=== PATIENT | female | born 1940 | race Caucasian/White ===

== ENCOUNTER 2025-02-12 09:36 | Outpatient (AMB) | payer MEDICARE, SELFPAY ==
--- NOTE | 2025-02-12 09:44 | MHC.OFFVIS ---
Vital Signs 02/12/25 09:45 Height 5 ft 1 in Weight 132 lb BMI 24.9 Blood Pressure Location Lt brachial Position Sitting Pulse 63 Pulse Oximetry (%) 96 Intake Visit Reasons: follow up Finishing Range Feeder Required: No Allergies No Known Allergies Allergy (Verified 02/12/25 09:48) Medication List - Last Reconciled 02/12/25 by Diana Rubin CNP amlodipine 7.5 mg PO DAILY cholecalciferol (vitamin D3) 25 mcg PO DAILY fluticasone propion-salmeterol 250-50 mcg/dose (Wixela Inhub) inhalation gabapentin 300 mg PO BID levothyroxine 50 mcg PO DAILY lisinopril 40 mg PO DAILY omeprazole 40 mg PO DAILY HPI Comments Details: She was doing okay. Neuropathy stable, minimal to no pain. No burning. Occasional tingling, usually in winter when cold. Minor cramps in legs. Sleep was okay. No falls. Staying active and exercising, line dancing and going for walks. Had L Childers's cysts. Previously fell x3 in 01/2020 and fractured L elbow. Had negative cardiac work up. Hx of peripheral neuropathy dating back to 1997. Had negative workup. Nerve conduction study in 07/2010 showed sensory greater than motor axonal peripheral neuropathy in lower extremities. REPLACED BY [facility] Medical History (Updated 02/12/25 @ 10:19 by Diana Rubin CNP) Hypothyroidism GERD (gastroesophageal reflux disease) Asthma Hypertension Hereditary and idiopathic peripheral neuropathy Peripheral neuropathy Review of Systems Const Denies chills, Denies daytime sleepiness, Denies difficulty sleeping, Denies fatigue, Denies fever(s), Denies frequent falls, Denies headache(s), Denies increased appetite, Denies poor appetite, Denies snoring, Denies weakness, Denies weight gain and Denies weight loss Eyes Denies loss of vision ENT Denies vertigo, Denies dizziness, Denies headache(s) and Denies neck pain Card Denies chest pain at rest, Denies chest pain with activity, Denies syncope, Denies leg edema, Denies palpitations, Denies dyspnea and Denies dyspnea on exertion Resp Denies cough, Denies dyspnea, Denies dyspnea on exertion and Denies snoring GI Denies abdominal pain, Denies constipation, Denies heartburn, Denies diarrhea and Denies nausea Denies urinary frequency, Denies urinary incontinence and Denies urinary urgency Musc Denies abnormal gait, Denies back pain, Denies myalgias, Denies arthralgias, Denies neck pain, Reports numbness and Reports tingling Neuro Denies abnormal gait, Denies vertigo, Denies dizziness, Denies syncope, Denies frequent falls, Denies headache(s), Denies lack of coordination, Denies loss of vision, Denies memory loss, Reports numbness, Denies Other visual disturbances, Denies restless legs, Denies seizure-like activity, Reports tingling, Denies paresthesias, Denies tremor(s) and Denies weakness Psych Denies anxiety, Denies depression, Denies auditory hallucinations, Denies memory loss and Denies visual hallucinations Endo Denies fatigue and Denies palpitations Physical Exam Vital Signs: Last Vital Signs Pulse 63 02/12/25 09:45 Pulse Ox 96 02/12/25 09:45 BMI result Body Mass Index 24.9 Const Other: General Appearance:? normal, in no acute distress. Heart:? S1, S2 normal, no murmurs. Lungs:? clear anteriorly and posteriorly. Musculoskeletal:? normal. Extremities:? no edema. Psych:? alert, oriented, cognitive function intact, cooperative with exam. Neuro Other: Abnormal Neurological Findings:?vibration loss below mid kingsley level. impaired pin prick below mid tarsal level. Atrophy of foot muscles and 1+ ankle reflexes? Mental Status: alert and oriented X 3. Normal attention, orientation, memory, and affect. Cranial Nerves: Pupils are equal, round, and reactive to light. External ocular muscles are intact. Visual kasper are full, no ptosis. Face is symmetrical, no facial weakness or droop. Facial sensations are normal. Tongue protrudes in midline. Palate elevates symmetrically. Shoulder shrugging is normal Motor Examination: Atrophy and weakness of intrinsic foot muscles. Normal muscle tone, bulk and strength,?No atrophy or fasciculations,?No drift of the extended upper extremities,?Deep tendon reflexes are 2+ , AJ 0-1+,?Plantars are flexor Sensory Exam: As above otherwise Normal light touch, temperature, pinprick, vibration and joint-position sensations?,Rhomberg sign is absent.? Coordination: No ataxia. No titubation. Gait Exam: Within normal limits. Cerebellar Signs: [id number] is okay. Extrapyramidal System: No tremor, rigidity with normal facial expressions. No bradykinesia. No bradyphrenia. Normal arm swing and posture. No propulsion or retropulsion. Speech: Normal. Results Reviewed Results Reviewed: NCV/EMG LE 02/02/15 AXONAL SENSORY AND MOTOR PERIPHERAL NEUROPATHY IN THE LOWER EXTREMITIES. NO SIGNIFICANT CHANGES SINCE LAST NCV/EMG DONE ON 08/03/10. Assessment & Plan Assessment & Plan (1) Hereditary and idiopathic peripheral neuropathy: Code(s): G60.9 - Hereditary and idiopathic neuropathy, unspecified Category: Medical Plan: Continue gabapentin 300mg 1 capsule twice a day. Medications: New gabapentin 300 mg PO BID 180 caps 3RF 90 days Coding Level of Care Code Est Pt Level 4 (57008) Diagnoses Hereditary and idiopathic peripheral neuropathy G60.9
[2025-02-12 09:45] VITALS: PULSE 63; O2SAT 96; BMI 24.9
--- OUTSIDE RECORDS SUMMARY | 2025-02-12 10:21 | XMS_ITS | Encounter Summary ---
Author Organization [facility] Address [id number] [place] [id number] Care Team Providers Care Pension Manager Name Role Phone Antonio Nice DO Primary Care Provider [phone] Encounter Details Date Type Department Care Team (Late Contact Info) Description 07/14/2024 Lab Requisition [facility] - Main Lab [address] [facility] [place] [phone] Cleo Joshua PA [address] [place] [address] Dysuria Social History Tobacco Use Types Packs/Day Years Used Date Smoking Tobacco: Never Smokeless Tobacco: Never Alcohol Use Standard Drinks/Week Comments No 0 (1 standard drink = 0.6 oz pur e alcohol) Comments Unknown Sex and Gender Information Value Date Recorded Sex Assigned at Not on file Legal Sex Female 11:38 AM EST Gender Identity Not on file Sexual Orientation Not on file documented as of this encounter Plan of Treatment Upcoming Encounters Date Type Department Care Team (Late Contact Info) Description 03/16/2025 10:30 AM EDT Office Visit [facility] [address] [facility] [address] [place] [phone] Brent Chand MD [address] [place] [phone] 04/08/2025 10:00 AM EDT Office Visit [facility] [address] [facility] [address] [place] [phone] Brent Chand MD [address] [place] [phone] documented as of this encounter Procedures Procedure Name Priority Date/Time Associated Diagnosis Comments CULTURE URINE Routine 07/14/2024 10:00 AM EST Dysuria documented in this encounter Results * (ABNORMAL) Culture urine (07/14/2024 10:00 AM EST) Culture, Urine 50,000-100,000 CFU/mL Citrobacter braakii(A) JUSTYN 07/16/2024 9:20 AM EST [facility] Comment: This is an edited result. Previous organism was Gram negative bacilli on 07/15/2024 at 1222 EST. Urine Urine specimen obtained by clean catch procedure / Unknown 07/14/2024 10:00 AM EST 07/14/2024 6:26 PM EST Narrative Organism Antibiotic Method Susceptibility Citrobacter braakii Amoxicillin/Clavulanate JUSTYN 16 ug/ml: Resistant Citrobacter braakii Cefoxitin JUSTYN >=64 ug/ml: Resistant Citrobacter braakii Ceftazidime JUSTYN <=0.5 ug/ml: Susceptible Citrobacter braakii Amikacin JUSTYN 2 ug/ml: Susceptible Citrobacter braakii Gentamicin JUSTYN <=1 ug/ml: Susceptible Citrobacter braakii Ciprofloxacin JUSTYN <=0.06 ug/ml: Susceptible Citrobacter braakii Nitrofurantoin JUSTYN <=16 ug/ml: Susceptible Citrobacter braakii Trimethoprim/Sulfamethoxazole JUSTYN <=20 ug/ml: Susceptible us Cleo MITCHELL LAB MICROBIOLOGY - GENERAL ORD ERABLES Final Result [facility] [address] [place] [address], documented in this encounter Visit Diagnoses Diagnosis Dysuria documented in this encounter Care Teams Pension Manager Relationship Specialty Start Date End Date Antonio Nice DO [address] [place] [address] PCP - General 07/17/99 documented as of this encounter
--- OUTSIDE RECORDS SUMMARY | 2025-02-12 10:21 | XMS_ITS | Encounter Summary ---
Author Organization [facility] Address [address] [place] [address] Care Team Providers Care Supervisor Sawmill Name Role Phone Antonio Nice DO Primary Care Provider [phone] Encounter Details Date Type Department Care Team (Late Contact Info) Description 09/10/[address] [facility] - Main Lab [address] [facility] [place] [address] Mauro Carmen PA [address] [place] [address] Urinary tract infection, site not specified; Other chronic cystitis without hematuria Social History Tobacco Use Types Packs/Day Years [...] Description 03/16/2025 10:30 AM EDT Office Visit [facility] 175 [facility] [address] [place] [address] Brent Chand MD [address] [place] [phone] 04/08/2025 10:00 AM EDT Office Visit [facility] [address] [facility] [address] [place] [address] Brent Chand MD [address] [place] [phone] documented as of this encounter Procedures Procedure Name Priority Date/Time Associated Diagnosis Comments CULTURE URINE Routine 09/10/2024 1:30 PM EDT Urinary tract infection, site not specified Other chronic cystitis without hematuria documented in this encounter Results * Culture urine (09/10/2024 1:30 PM EDT) Culture, Urine No growth 09/11/2024 1:53 PM EDT [facility] Urine Urine specimen obtained by clean catch procedure / Unknown 09/10/2024 1:30 PM EDT 09/10/2024 6:26 PM EDT us Mauro Carmen PA LAB MICROBIOLOGY - GENERAL ORD ERABLES Final Result [facility] [address] [place] [address], documented in this encounter Visit Diagnoses Diagnosis Urinary tract infection, site not specified Other chronic cystitis without hematuria documented in this encounter Care Teams Supervisor Sawmill Relationship Specialty Start Date End Date Antonio Nice DO [address] [place], [place] PCP - General 07/17/99 documented as of this encounter
--- OUTSIDE RECORDS SUMMARY | 2025-02-12 10:21 | XMS_ITS | Encounter Summary ---
Author Organization [facility] Address [address] [place] [address] Care Team Providers Care Crop Quantitative Geneticist Name Role Phone Antonoi Nice DO Primary Care Provider [phone] Encounter Details Date Type Department Care Team (Late Contact Info) Description 10/28/[address] [facility] - Main Lab [address] [facility] [place] [phone] El Garrett, PA [address] [place] [address] Urinary tract infection, site not specified Social History Tobacco Use Types Packs/Day Years [...] Description 03/16/2025 10:30 AM EDT Office Visit [facility] 175 [facility] [address] [place] [phone] Brent Chand MD [address] [place] [phone] 04/08/2025 10:00 AM EDT Office Visit [facility] [address] [facility] [address] [place] [address] Brent Chand MD [address] [place] [phone] documented as of this encounter Procedures Procedure Name Priority Date/Time Associated Diagnosis Comments CULTURE URINE Routine 10/28/2024 12:00 AM EDT Urinary tract infection, site not specified documented in this encounter Results * Culture urine (10/28/2024 12:00 AM EDT) Culture, Urine No growth 10/29/2024 10:17 AM EDT [facility] Urine Urine specimen obtained by clean catch procedure / Unknown 10/28/2024 10/28/2024 1:39 PM EDT [facility] Gerry MITCHELL LAB MICROBIOLOGY - GENERAL CRISTELA MANCILLA Final Result [facility] [address] [place] [address], documented in this encounter Visit Diagnoses Diagnosis Urinary tract infection, site not specified documented in this encounter Care Teams Crop Quantitative Geneticist Relationship Specialty Start Date End Date Antonio Nice DO [address] [place] [address] PCP - General 07/17/99 documented as of this encounter
--- OUTSIDE RECORDS SUMMARY | 2025-02-12 10:21 | XMS_ITS | Clinical Summary ---
Author Organization [address] Address [address] [place] [phone] Phone Care Team Providers Care Director Cost Name Role Phone Antonio Nice DO Primary Care Provider [phone] Allergies No known active allergies Medications GABAPENTIN ORAL Gabapentin, Once-Daily, 300 & 600 MG Misc Patient sig: Take by mouth. Active amLODIPine (Norvasc) 5 mg tablet 1 TABLET DAILY Activ e fluticasone-enid meterol (ADVAIR DISKUS) 250-50 mcg/dose diskus inhaler Inhale into the lungs. 2 Active fluticasone-enid meterol (ADVAIR DISKUS) 250-50 mcg/dose diskus inhaler Inhale 1 Puff into the lungs every 12 hours. Active hydroCHLOROthia zide (MICROZIDE) 12.5 mg capsule Take 1 Capsule by mouth daily. 2 Active levothyroxine (SYNTHROID, LEVOTHROID) 50 mcg tablet 1 TABLET DAILY Acti ve lisinopril (PRINIVIL,ZESTR IL) 40 mg tablet Take 1 Tablet by mouth daily. 2 Active famotidine (PEPCID) 40 mg tablet Take 1 tablet (40 mg total) by mouth 2 (two) times a day. 180 each 3 5 07/23/19 26 Active albuterol HFA (PROAIR HFA ; PROVENTIL HFA ; VENTOLIN HFA) 90 mcg/actuation inhaler Inhale 2 puffs by mouth 3 (three) times a day. 9 Active aspirin 81 mg EC tablet Take 1 tablet (81 mg total) by mouth 1 (one) time. 8 Active cephalexin (KEFLEX) 250 mg capsule Take 1 capsule (250 mg total) by mouth 1 (one) time each day in the morning. Active ciprofloxacin (CIPRO) 250 mg tablet Take 1 tablet (250 mg total) by mouth 2 (two) times a day. Active estradioL (ESTRACE) 0.01 % (0.1 mg/gram) vaginal cream Insert 1 g into the vagina 3 (three) times a week. Active fluticasone propionate (FLONASE) 50 mcg/actuation nasal spray Administer 2 sprays into each nostril 1 (one) time each day. 4 Active neomycin-polymy theodore-dexamethame thasone (POLYDEX) 3.5 mg/g-10,000 unit/g-0.1 % ointment Apply to both eyes at bedtime. Active nitrofurantoin, macrocrystal-mo nohydrate, (MACROBID) 100 mg capsule Take 1 capsule (100 mg total) by mouth 2 (two) times a day. Active omeprazole (PriLOSEC) [address] capsule Take 1 capsule (40 mg total) by mouth 1 (one) time each day. Active sulfamethoxazol e-trimethoprim (BACTRIM DS,SEPTRA DS) 800-160 mg per tablet Take 1 tablet by mouth 2 (two) times a day. Active trimethoprim (TRIMPEX) 100 mg tablet Take 1 tablet (100 mg total) by mouth 2 (two) times a day. 9 Active umeclidinium (INCRUSE ELLIPTA) 62.5 mcg/actuation inhalation Inhale 1 puff by mouth 1 (one) time each day. Active Active Problems Problem Noted Date Diagnosed Date Chronic obstructive lung disease ([facility] V24, [facility] [place]/[facility] V28) 12/10/2024 Dyslipidemia 12/10/2024 Gastroesophageal reflux disease 12/10/2024 Overview (12/10/2024): [id number] Gustavo thyroiditis 12/10/2024 Idiopathic peripheral neuropathy 12/10/2024 Osteopenia 12/10/2024 Palpitations 12/10/2024 Prediabetes 12/10/2024 Urticaria 12/10/2024 HTN (hypertension) 05/17/2022 Overview (07/20/2024): Last Assessment & Plan: The patient has a history of arterial hypertension. The patient's blood pressure today was noted to be well controlled. We'll continue the current antihypertensive medication regimen. Acute sinusitis 10/02/2021 Overview (12/10/2024): Other acute sinusitis; Note: Date Diagnosed: 10/02/2021 1:22 PM (J01.80) Bilateral impacted cerumen 05/05/2018 Overview (12/10/2024): Impacted cerumen, bilateral; Note: Date Diagnosed: 05/05/2018 9:41 AM (H61.23) Encounters Date Type Department Care Team Description 01/07/2025 10:45 AM EDT Office Visit [address] [phone] Brent Chand MD COPD with acute exacerbation (CMS/HCC V24, CMS/[facility] V28) (Primary Dx); Gastroesophageal reflux disease without esophagitis; Seasonal allergic rhinitis due to pollen 12/17/2024 10:27 AM EDT - 12/17/2024 11:59 PM EDT Hospital Encounter [facility] Xray [address] [place] [phone] COPD with acute exacerbation (CMS/HCC V24, CMS/HCC V28) Discharge Disposition: Home or Self Care 12/16/2024 2:00 PM EDT Office Visit [address] [phone] Brent Chand MD COPD with acute exacerbation (CMS/HCC V24, CMS/HCC V28) (Primary Dx); Gastroesophageal reflux disease without esophagitis; Non-seasonal allergic rhinitis due to pollen 12/10/2024 11:30 AM EDT Office Visit [address] [phone] Brent Chand MD Pulmonary emphysema, unspecified emphysema type (CMS/HCC V24, CMS/HCC V28) (Primary Dx); Acute cough; Upper respiratory tract infection, unspecified type; Seasonal allergic rhinitis due to pollen; Bronchitis from Last 3 Months Surgical History Surgery Date Site/Laterality Comments BLADDER SUSPENSION 1999 PROCEDURE: HISTORICAL BLADDER SUSPENSION SECTION PROCEDURE: [place] DELIVERY ONLY; COMMENT: x1 TONSILLECTOMY PROCEDURE: HISTORICAL TONSILLECTOMY HYSTERECTOMY PROCEDURE: HISTORICAL HYSTERECTOMY HYSTERECTOMY PROCEDURE: [place] VAGINAL HYSTERECTOMY UTERUS 250 GM/< Medical History Medical History Date Comments Disuse osteoporosis DX:Disuse os teoporosis Essential hypertension, benign D X:Essential hypertension, benign Family History Medical History Relation Name Comments Heart attack Brother 1 Heart attack Brother 2 Heart failure Father Heart failure Maternal Grandmother Asthma Mother Hypertension Sister 1 x4 Relation Name Status Comments Brother 1 Brother 2 Brother 3 Alive x1 Daughter Alive x1 Father (Age 50) Maternal Grandfather Maternal Grandmother Mother (Age 85) Paternal Grandfather Paternal Grandmother Sister 1 Sister 2 Alive x4 Son Alive x2 Social History Tobacco Use Types Packs/Day Years Used Date Smoking Tobacco: Never Smokeless Tobacco: Never Tobacco Cessation:Counseling Given: Not Answered Alcohol Use Standard Drinks/Week Comments No 0 (1 standard drink = 0.6 oz pur e alcohol) Comments Unknown Sex and Gender Information Value Date Recorded Sex Assigned at Not on file Legal Sex Female 11:38 AM EST Gender Identity Not on file Sexual Orientation Not on file Obstetrics History Last Filed Vital Signs Vital Sign Reading Time Taken Comments Blood Pressure 131/70 01/07/2025 10:32 AM EDT Pulse 71 01/07/2025 10:32 AM EDT Temperature 35.9 C (96.6 F) 01/07/2025 10:32 AM EDT Respiratory Rate 20 12/16/2024 2:10 PM EDT Oxygen Saturation 97% 01/07/2025 10: 32 AM EDT Inhaled Oxygen Concentration - - Weight 61.1 kg (134 lb 12.8 oz) 025 10:32 AM EDT Height 154.9 cm (5' 1 ) 12/16/2024 2:10 PM EDT Body Mass Index 25.47 12/16/2024 2:10 PM EDT Plan of Treatment Upcoming Encounters Date Type Department Care Team (Late st Contact Info) Description 03/16/2025 10:30 AM EDT Office Visit [facility]mon[facility]gy [facility] [address] [place] [phone] Brent Chand MD [address] [place] [phone] 04/08/2025 10:00 AM EDT Office Visit [facility] [address] [place] [phone] Brent Chand MD [address] [place] [phone] Health Maintenance Due Date Last Done Comments Zoster Vaccines (2 of 2) 07/07/2018 05/12/2018 Cholesterol Screening (Lipid Panel) 05/20/2022 Falls Risk Assessment 05/20/2022 Medicare Annual Wellness Visit 05/20/2022 Osteoporosis Screening (Bone Density Screening) 05/20/2022 Social Influencers of Health Screening 05/20/2022 Hypertension/CHF/CAD Annual BMP Blood Test 07/12/2023 Depression Screening 06/10/2024 COVID-19 Vaccine ( season) 2025 12/09/2021, 03/03/2021, 07/30/2020, Additional history exists Influenza Vaccine (#1) 2025 , 02/08/2023, 02/21/2022, Additional history exists DTaP,Tdap,and Td Vaccines (3 - Td or Tdap) 12/16/2028 12/16/2018, 12/16/2015 Pneumococcal Vaccine: 50+ Years Completed 03/10/2022 RSV Immunization Adult Patients Completed 04/06/2023 HIB Vaccines Aged Out No longer eligi ble based on patient's age to complete this topic HPV Vaccines Aged Out No longer eligi ble based on patient's age to complete this topic Hepatitis A Vaccines Aged Out No long er eligible based on patient's age to complete this topic Hepatitis B Vaccines Aged Out No long er eligible based on patient's age to complete this topic IPV Vaccines Aged Out No longer eligi ble based on patient's age to complete this topic MMR Vaccines Aged Out No longer eligi ble based on patient's age to complete this topic Meningococcal ACWY Vaccine Aged Out N o longer eligible based on patient's age to complete this topic Meningococcal B Vaccine Aged Out No l onger eligible based on patient's age to complete this topic RSV Immunization Patients Under 20 months Aged Out No longer eligible based on patient's age to complete this topic Varicella Vaccines Aged Out No longer eligible based on patient's age to complete this topic Procedures Procedure Name Priority Date/Time Associated Diagnosis Comments XR CHEST 2 VIEWS Routine 12/17/2024 10:3 5 AM EDT COPD with acute exacerbation ([facility] V24, [facility] V28) from Last 3 Months Results * XR Chest 2 Views (12/17/2024 10:35 AM EDT) Anatomical Region Laterality Modality Body Radiographic Judy ging 12/17/2024 10:4 0 AM EDT Impressions 12/17/2024 10:43 AM EDT Mild linear scarring versus discoid atelectasis at the left lung base. The lungs are otherwise clear. Code 38491 -------- FINAL REPORT -------- Dictated By: Mina Alonso Dictated Date: 12/17/2024 10:40 ET Assigned Physician: Mina Alonso Reviewed and Electronically Signed By: Mina Alonso Signed Date: 12/17/2024 10:43 ET Workstation ID: [id number] Transcribed By: Self Edit Transcribed Date: 12/17/2024 10:40 ET Narrative 12/17/2024 10:43 AM EDT HISTORY: The patient is an 84-year-old female with persistent cough. FINDINGS: PA and lateral radiographs of the chest, without previous for comparison, are obtained. A necklace, which the patient apparently would not remove, partially obscures the included portion of the cervical spine. There are mild degenerative changes of the thoracic spine and there is dextroscoliosis of the included portion of the lumbar spine. The cardiac silhouette is within normal limits. The descending thoracic aorta is tortuous. Mild linear scarring versus discoid atelectasis is present at the left lung base. The lungs are otherwise clear and the costophrenic angles are sharp. Procedure Note Mina Alonso MD - 12/17/2024 HISTORY: The patient is an 84-year-old female with persistent cough. FINDINGS: PA and lateral radiographs of the chest, without previous forcomparison, are obtained. A necklace, which the patient apparently wouldnot remove, partially obscures the included portion of the cervical spine.There are mild degenerative changes of the thoracic spine and there isdextroscoliosis of the included portion of the lumbar spine. The cardiacsilhouette is within normal limits. The descending thoracic aorta istortuous. Mild linear scarring versus discoid atelectasis is present atthe left lung base. The lungs are otherwise clear and the costophrenicangles are sharp. IMPRESSION: Mild linear scarring versus discoid atelectasis at the left lung base. Thelungs are otherwise clear. Code 14729 -------- FINAL REPORT -------- Dictated By: Mina Alonso Dictated Date: 12/17/2024 10:40 ET Assigned Physician: Mina Alonso Reviewed and Electronically Signed By: Mina Alonso Signed Date: 12/17/2024 10:43 ET Workstation ID: [id number] Transcribed By: Self Edit Transcribed Date: 12/17/2024 10:40 ET us Brent Chand MD IMG XR PROCEDURES Final Resu lt from Last 3 Months Insurance MEDICARE [facility] Care Teams Director Cost Relationship Specialty Start Date End Date Antonio Nice DO [address] [place] [address] PCP - General 07/17/99
--- OUTSIDE RECORDS SUMMARY | 2025-02-12 10:21 | XMS_ITS | Encounter Summary ---
Author Organization [facility] Address [address] [place] [address] Care Team Providers Care Pharmacovigilance Safety Expert Name Role Phone Antonio Nice DO Primary Care Provider [phone] Encounter Details Date Type Department Care Team (Late Contact Info) Description 08/10/2024 Lab Requisition [facility] - Main Lab [address] [facility] [place] [address] Asa Valdez PA [address] [place] [address] Urinary tract infection, site not specified Social [...] Description 03/16/2025 10:30 AM EDT Office Visit [facility] [address] [facility] [address] [place] [phone] Brent Chand MD [address] [place] [phone] 04/08/2025 10:00 AM EDT Office Visit [facility] [address] [facility] [address] [place] [phone] Brent Chand MD [address] [place] [phone] documented as of this encounter Procedures Procedure Name Priority Date/Time Associated Diagnosis Comments CULTURE URINE Routine 08/10/2024 12:00 AM EST Urinary tract infection, site not specified documented in this encounter Results * (ABNORMAL) Culture urine (08/10/2024 12:00 AM EST) Culture, Urine 10,000-49,000 CFU/mL Streptococcus beta-hemolytic Group B(A) 08/11/2024 10:39 AM EST [facility] Comment: Susceptibility testing is not routinely performed for Beta Streptococcus isolates since these organisms are predictably sensitive to Penicillin. If the Patient is not responding, is allergic to Penicillin, or further therapeutic information is requir ed, please consult an Infectious Disease Specialist. Urine Urine specimen obtained by clean catch procedure / Unknown 08/10/2024 08/10/2024 1:29 PM EST us [facility] MICRO[facility]OLOGY - GE NERAL ORDERABLES Final Result [facility] [address] [place] [address], documented in this encounter Visit Diagnoses Diagnosis Urinary tract infection, site not specified documented in this encounter Care Teams Pharmacovigilance Safety Expert Relationship Specialty Start Date End Date Antonio Nice DO [address] [place] [address] PCP - General 07/17/99 documented as of this encounter
== END 2025-02-12 10:22 | disposition home or self-care (01) ==
PROVIDERS: PCP Family Medicine; Visit Provider Registered Nurse
DX: G60.9 Hereditary and idiopathic neuropathy, unspecified (principal)
CPT/HCPCS: 99214

== ENCOUNTER → 2025-02-12 09:36 | Outpatient (BNVA) | payer MEDICARE, SELFPAY | PROVIDERS: PCP Family Medicine; Visit Provider Registered Nurse | DX: G60.9 Hereditary and idiopathic neuropathy, unspecified (principal) | CPT/HCPCS: 99212 ==